=== PATIENT | female | born 1970 | race Two or more races ===

== ENCOUNTER 2020-11-30 09:07 | Emergency (ER) | payer OTHER ==
[~2020-11-30] VITALS: Ht 160 cm; Wt 72.6 kg
[2020-11-30 10:05] LABS: Urine Bacteria FEW /hpf (None Seen); Urine Blood TRACE /uL (Negative); Urine Mucus FEW (None Seen); Urine Specific Gravity 1.033 (1.001-1.035); Urine WBC 98 /hpf (0 - 5)
[2020-11-30] MEDS ORDERED: HYDROcodone-ACET 10/325MG TAB PO ONE (13:00)
[2020-11-30 14:01] VITALS: BP 119/91
== END 2020-11-30 19:24 | disposition home or self-care (01) ==
LOC: ER 09:07
DX: S33.5XXA Sprain of ligaments of lumbar spine, initial encounter (principal); M62.838 Other muscle spasm; N39.0 Urinary tract infection, site not specified; W01.0XXA Fall on same level from slipping, tripping and stumbling without subsequent striking against object, initial encounter; Y93.89 Activity, other specified; Y92.89 Other specified places as the place of occurrence of the external cause; Y99.8 Other external cause status
CPT/HCPCS: 72131; 81001